=== PATIENT | male | born 1975 | race African-American/Black ===

== ENCOUNTER → 2017-08-29 | Outpatient (CLI) | payer MEDICARE ==
[~2017-08-29] MED LIST: CEPHALEXIN500 M1 PO; LORTAB 5/500 501 TAB PO; LOXAPINE5 MG PO; NAPROSYN500 MG PO; NO HOME MEDICATIONS; NORCO 325 MG-51 TAB PO; REMERON 15M15 MG/TA1 PO
[2017-08-29 10:25] LABS: BASO # 0.1 (0.0-0.2); BASO % 0.8 % (0.0-2.0); EOS # 0.3 (0.0-0.7); EOS % 4.1 % (0-4.0); GRAN # 3.3 (1.4-6.5); GRAN % 45.1 % (42.2-75.2); HEMOGLOBIN 14.3 g/dl (13.5-18.0); LYMPH # 2.9 (1.2-3.4); LYMPH % 40.2 % (20.0-51.0); MEAN CELL VOLUME 79 fl (80.0-100.0); MEAN CORPUSCULAR HEMOGLOBIN 25 pg (27.0-31.0); MEAN CORPUSCULAR HGB CONC 32 g/dl (33.0-37.0); MEAN PLATELET VOLUME 10.4 fl (7.4-10.4); MONO # 0.7 (0.1-0.6); MONO % 9.7 % (1.7-9.3); PLATELET COUNT 212 K/mm3 (130-400)
[2017-08-29 10:37] LABS: ALBUMIN 4.3 gm/dL (3.5-5.0); CALCIUM 9.6 mg/dL (8.4-10.2); CHOLESTEROL RISK RATIO 2.8; CREATININE, serum 1.32 mg/dL (0.66-1.25); POTASSIUM 4.2 mmol/L (3.4-5.0); TOTAL PROTEIN 8.4 gm/dL (6.4-8.2)
== END ==
LOC: COL.LAB 09:56
PROVIDERS: Counselor
DX: Z79.899 Other long term (current) drug therapy (principal)

== ENCOUNTER 2018-03-06 08:20 | Emergency (ER) | payer MEDICARE ==
[~2018-03-06] VITALS: Ht 172.7 cm; Wt 72.7 kg
[2018-03-06 08:30] VITALS: BP 120/72; PULSE 67; TEMP 98.3
[2018-03-06] MEDS ORDERED: POLYMYXIN B/TRIMETH OS (09:01)
== END 2018-03-06 09:21 | disposition home or self-care (01) ==
LOC: COL.ER 08:20
DX: B99.9 Unspecified infectious disease (principal); H10.89 Other conjunctivitis

== ENCOUNTER 2019-03-22 12:22 | Emergency (ER) | payer MEDICARE ==
[~2019-03-22] VITALS: Ht 172.7 cm; Wt 72.7 kg
[~2019-03-22 12:22] MED LIST changes: +POLYMYXIN B/TRIMETH OS
[2019-03-22 12:29] VITALS: BP 119/71; TEMP 97.9
[2019-03-22 13:39] VITALS: PULSE 63
== END 2019-03-22 13:40 | disposition home or self-care (01) ==
LOC: COL.ER 12:22
DX: S43.402A Unspecified sprain of left shoulder joint, initial encounter (principal); F17.210 Nicotine dependence, cigarettes, uncomplicated; X50.1XXA Overexertion from prolonged static or awkward postures, initial encounter; Y92.009 Unspecified place in unspecified non-institutional (private) residence as the place of occurrence of the external cause

== ENCOUNTER 2020-09-29 08:56 | Emergency (ER) | payer MEDICARE ==
[~2020-09-29] VITALS: Ht 175.3 cm; Wt 72.7 kg
[2020-09-29 09:05] VITALS: BP 116/76; TEMP 98.1
[2020-09-29 10:53] VITALS: PULSE 59
== END 2020-09-29 10:53 | disposition home or self-care (01) ==
LOC: COL.ER 08:56
DX: S66.114A Strain of flexor muscle, fascia and tendon of right ring finger at wrist and hand level, initial encounter (principal); D17.0 Benign lipomatous neoplasm of skin and subcutaneous tissue of head, face and neck; Z87.891 Personal history of nicotine dependence; X58.XXXA Exposure to other specified factors, initial encounter